=== PATIENT | male | born 1985 | race Caucasian/White ===

== ENCOUNTER 2024-02-23 10:40 | Emergency (ER) | payer OTHER ==
[~2024-02-23] VITALS: Ht 182.9 cm; Wt 73.0 kg
[2024-02-23 10:50] VITALS: BP 109/62; PULSE 64; RESP 16; TEMP 97.3; O2SAT 100
== END 2024-02-23 13:01 | disposition home or self-care (01) ==
LOC: ER 10:40
DX: S80.862A Insect bite (nonvenomous), left lower leg, initial encounter (principal); F90.9 Attention-deficit hyperactivity disorder, unspecified type; W57.XXXA Bitten or stung by nonvenomous insect and other nonvenomous arthropods, initial encounter; Y93.89 Activity, other specified; Y92.89 Other specified places as the place of occurrence of the external cause; Y99.8 Other external cause status
CPT/HCPCS: 99283